=== PATIENT | female | born 1990 | race Caucasian/White ===

== ENCOUNTER 2017-02-12 14:10 | Emergency (ER) | payer OTHER ==
[~2017-02-12] VITALS: Wt 56.4 kg
--- NOTE | 2017-02-12 15:56 | RADRPT ---
PROCEDURE: US OB. CLINICAL INDICATION: Size and dates , abdominal trauma TECHNIQUE: Multiple sonographic images of the pelvis and gravid uterus were obtained. The images were reviewed on a PACS workstation. COMPARISON: No prior studies are available for comparison. FINDINGS: The cervix is closed with a length of 3.6 cm. There is a single viable intrauterine gestation. Cardiac activity is present with 150 beats per min yaya. There is a variable presentation. The placenta is posterior. There is no evidence for an abruption. There is possible placenta previa at this time. MVP = 4 cm. Measurements were made in order to determine age. The results are as follows: BPD =2.9 cm HC =10.3 cm AC =8.0 cm FL =1.6 cm Estimated gestational age of approximately 14 weeks and 5 days based on ultrasound measurements. Clinical age: 15 weeks and 4 days. The estimated date of delivery is 08/08/17, based on ultrasound measurements. The EFW = 100 g, <3%, based on LMP age. RPTAT: AA IMPRESSION: Single viable intrauterine gestation of approximately 14 weeks and 5 days based on ultrasound measu rements. Possible placenta previa at this time. Follow-up is recommended. No evidence of placental abruption. .Valdemar Morgan MD, MD Date Time Electronically viewed and signed by .Valdemar Morgan MD, MD on 02/12/2017 15:55 .S/
--- NOTE | 2017-02-12 16:49 | EN ---
Date/Time of Note Date/Time of Note DATE: 02/12/17 TIME: 16:49 GERALDO CALVILLO PA-C Feb 12, 2017 16:49
--- NOTE | 2017-02-13 06:22 | ERD ---
ER Documentation Chief Complaint Chief Complaint large dog jumped on her abdomen 2 days ago, would like ultrasound, no sympt HPI 26 year old female who is stating she is 14 weeks presents to the emergency department requesting a pelvic OB ultrasound. She states a large dog jumped and pushed her abdomen, she states she was very scared something happened to the baby. She called her OB who suggested her to come to the ER. She denies pelvic pain, vaginal bleeding. ROS All systems reviewed and are negative except as per history of present illness. PMhx/Soc Medical and Surgical Hx: pt denies Medical Hx, pt denies Surgical Hx Hx Alcohol Use: No Hx Substance Use: No Hx Tobacco Use: No Smoking Status: Never smoker Physical Exam Vitals Vital Signs Date Time Temp Pulse Resp B/P Pulse Ox O2 Delivery O2 Flow Rate FiO2 02/12/17 14:15 97.8 75 18 128/75 99 Physical Exam Const: WDWN Head: Atraumatic Eyes: Normal Conjunctiva ENT: Normal External Ears, Nose and Mouth. Neck: Full range of motion..~ No meningismus. Resp: Clear to auscultation bilaterally Cardio: Regular rate and rhythm, no murmurs Abd: Soft, non tender, non distended. Normal bowel sounds Skin: No petechiae or rashes Back: No midline or flank tenderness Ext: No cyanosis, or edema Neur: Awake and alert Psych: Normal Mood and Affect Procedures/MDM 26 year old female who is stating she is 14 weeks presents to the emergency department requesting a pelvic OB ultrasound. She states a large dog jumped and pushed her abdomen, she states she was very scared something happened to the baby. She does not have any pain, she appears well, afebrile, stable to be discharged home. OB ultrasound: Single viable intrauterine gestation of approximately 14 weeks and 5 days based on ultrasound measurements. Possible placenta previa at this time. Follow-up is recommended. No evidence of placental abruption. Departure Diagnosis: Primary Impression: Pelvic pain Condition: Stable Patient Instructions: : Your Second Trimester Changes GERALDO CALVILLO PA-C Feb 13, 2017 06:22
== END 2017-02-12 16:52 | disposition home or self-care (01) ==
LOC: FTE 14:10
DX: O26.892 Other specified pregnancy related conditions, second trimester (principal); R10.2 Pelvic and perineal pain; Z3A.14 14 weeks gestation of pregnancy
CPT/HCPCS: 76805